=== PATIENT | male | born 1945 | race Caucasian/White ===

== ENCOUNTER 2025-08-17 09:58 | Emergency (ER) | payer OTHER, MEDICARE, BC ==
[~2025-08-17] VITALS: Ht 162.6 cm; Wt 64.7 kg
[2025-08-17 10:11] VITALS: BP 178/92; PULSE 71; RESP 18; TEMP 97.4; O2SAT 98
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
[2025-08-17] MEDS ORDERED: LIDO-52 TD (14:18)
[2025-08-17] MEDS ORDERED: IBUP-1984 PO (14:18)
[2025-08-17] MEDS ORDERED: TIZA4TAB11 PO (14:18)
== END 2025-08-17 14:27 | disposition home or self-care (01) ==
LOC: ER 09:59
DX: M54.12 Radiculopathy, cervical region (principal); Z79.899 Other long term (current) drug therapy; V89.2XXA Person injured in unspecified motor-vehicle accident, traffic, initial encounter; Y93.89 Activity, other specified; Y92.89 Other specified places as the place of occurrence of the external cause; Y99.8 Other external cause status
CPT/HCPCS: 72125; 99284